=== PATIENT | male | born 1970 | race Caucasian/White ===

== ENCOUNTER → 2023-12-28 | Outpatient (CLI) | payer OTHER ==
[~2023-12-28] MED LIST: ALBU90OI INH; IBUP600 PO; PRED20 PO; TYLENOL PM PO
[2023-12-28 19:05] LABS: BASOPHILS ABSOLUTE AUTO 0.05 K/mm3 (0.00-0.23); BASOPHILS PERCENT AUTO 0 % (0-2); EOSINOPHILS ABSOLUTE AUTO 0.08 K/mm3 (0.00-0.68); EOSINOPHILS PERCENT AUTO 1 % (0-6); Hematocrit 44.1 % (37.0-53.0); Hemoglobin 13.6 g/dL (13.5-17.5); IMMATURE GRAN ABSOLUTE AUTO 0.06 K/mm3 (0.00-0.10); IMMATURE GRAN PERCENT AUTO 1 % (0-1); LYMPHOCYTES ABSOLUTE AUTO 2.27 K/mm3 (0.84-5.20); LYMPHOCYTES PERCENT AUTO 18 % (21-46); MONOCYTES PERCENT AUTO 4 % (4-13); Mean Corpuscular HGB 30.4 pg (26.0-34.0); Mean Corpuscular HGB Conc 30.8 g/dL (31.5-36.5); Mean Corpuscular Volume 98 fL (80-100); Mean Platelet Volume 9.7 fL (9.1-12.4); NEUTROPHILS ABSOLUTE AUTO 9.55 K/mm3 (1.96-9.15); NEUTROPHILS PERCENT AUTO 76 % (41-73); Platelet Count 303 K/mm3 (150-400); RDW Coefficient Variation 14.8 % (11.7-14.2); RDW Standard Deviation 52.8 fL (35.1-46.3); Red Blood Cell Count 4.48 M/mm3 (4.30-5.90); White Blood Cell Count 12.51 K/mm3 (4.00-11.30)
[2023-12-28 20:25] LABS: Alanine Aminotransfer (ALT/SGP 58 U/L (12-78); Albumin, Blood 3.4 g/dL (3.4-5.0); Alk Phos 128 U/L (50-136); Anion Gap 11 mmol/L (3-11); Aspartate Aminotrans (AST/SGOT 30 U/L (12-37); Bilirubin, Total 0.6 mg/dL (0.1-1.0); Blood Urea Nitrogen 22 mg/dL (8-24); Bun/Creatinine Ratio 27.7 (12.0-20.0); CO2, Blood 24 mmol/L (21-32); Calcium, Blood 8.9 mg/dL (8.5-10.1); Chloride, Blood 108 mmol/L (98-108); Cholesterol 176 mg/dL (50-200); Creatinine, Blood 0.79 mg/dL (0.60-1.20); Globulin, Blood 3.5 g/dL (2.2-4.0); Glomerular Filtration Rate 106 (60-); Glucose, Blood 92 mg/dL (70-99); HDL Cholesterol 25 mg/dL (>39); LDL/HDL RATIO 4.7; Low Density Lipoprotein Chol 117 mg/dL (0-110); Potassium, Blood 3.7 mmol/L (3.5-5.5); Prostate Specific Antigen 0.454 ng/mL (0.000-4.000); Sodium, Blood 139 mmol/L (136-145); Total Protein, Blood 6.9 g/dL (6.4-8.2); Triglycerides 169 mg/dL (30-160); Very Low Density Lipoprot Chol 33 mg/dL (6-32)
[2023-12-31 10:41] LABS: HEPATITIS C AB CIA INTERP Negative (Negative); HEPATITIS C ANTIBODY CIA INDEX 0.03 IV
[2023-12-31 12:23] LABS: HIV 1,2 COMBO ANTIGEN/ANTIBODY Negative (Negative)
== END ==
LOC: LAB 17:28 → LAB SHORT 17:28
PROVIDERS: Nurse Practitioner Family
DX: Z13.6 Encounter for screening for cardiovascular disorders (principal); I50.9 Heart failure, unspecified; Z00.01 Encounter for general adult medical examination with abnormal findings; Z11.59 Encounter for screening for other viral diseases; Z12.5 Encounter for screening for malignant neoplasm of prostate
CPT/HCPCS: 80053; 80061; 83880; 85025; 86803; 87389; G0103

== ENCOUNTER → 2024-01-11 | Outpatient (CLI) | payer OTHER ==
[2024-01-12 15:26] LABS: Albumin, Blood 3.2 g/dL (3.4-5.0); Albumin/Globulin Ratio 0.9 (0.8-1.8); Bilirubin, Total 0.7 mg/dL (0.1-1.0); Bun/Creatinine Ratio 20.4 (12.0-20.0); Calcium, Blood 9.1 mg/dL (8.5-10.1); Creatinine, Blood 0.88 mg/dL (0.60-1.20); Globulin, Blood 3.7 g/dL (2.2-4.0); Total Protein, Blood 6.9 g/dL (6.4-8.2)
== END ==
LOC: LAB 16:40 → LAB SHORT 16:40
PROVIDERS: Family Medicine
DX: I50.22 Chronic systolic (congestive) heart failure (principal)
CPT/HCPCS: 80053; 83880

== ENCOUNTER 2024-01-24 22:30 | Emergency (ER) | payer OTHER ==
[~2024-01-24] VITALS: Ht 180.3 cm; Wt 63.5 kg
[2024-01-24] MEDS ORDERED: Albuterol 2.5 MG/3 ML VIAL INH ONE (23:05)
[2024-01-24 23:23] LABS: Base Excess Venous -1.5 mmol/L; Bicarbonate Venous 23.1 mmol/L (24.0-30.0); pH Blood Venous 7.37 (7.34-7.37)
[2024-01-24 23:34] LABS: BASOPHILS ABSOLUTE AUTO 0.08 K/mm3 (0.00-0.23); BASOPHILS PERCENT AUTO 1 % (0-2); EOSINOPHILS ABSOLUTE AUTO 0.04 K/mm3 (0.00-0.68); EOSINOPHILS PERCENT AUTO 0 % (0-6); Hematocrit 44.8 % (37.0-53.0); Hemoglobin 13.5 g/dL (13.5-17.5); IMMATURE GRAN ABSOLUTE AUTO 0.07 K/mm3 (0.00-0.10); IMMATURE GRAN PERCENT AUTO 0 % (0-1); LYMPHOCYTES ABSOLUTE AUTO 2.88 K/mm3 (0.84-5.20); LYMPHOCYTES PERCENT AUTO 18 % (21-46); MONOCYTES ABSOLUTE AUTO 0.99 K/mm3 (0.16-1.47); MONOCYTES PERCENT AUTO 6 % (4-13); Mean Corpuscular HGB 28.1 pg (26.0-34.0); Mean Corpuscular HGB Conc 30.1 g/dL (31.5-36.5); Mean Corpuscular Volume 93 fL (80-100); Mean Platelet Volume 9.7 fL (9.1-12.4); NEUTROPHILS ABSOLUTE AUTO 11.69 K/mm3 (1.96-9.15); NEUTROPHILS PERCENT AUTO 74 % (41-73); Platelet Count 284 K/mm3 (150-400); RDW Coefficient Variation 15.9 % (11.7-14.2); Red Blood Cell Count 4.81 M/mm3 (4.30-5.90); White Blood Cell Count 15.75 K/mm3 (4.00-11.30)
[2024-01-24 23:58] LABS: Albumin, Blood 2.8 g/dL (3.4-5.0); Albumin/Globulin Ratio 0.7 (0.8-1.8); Bilirubin, Total 0.7 mg/dL (0.1-1.0); Bun/Creatinine Ratio 24.5 (12.0-20.0); Creatinine, Blood 0.65 mg/dL (0.60-1.20); Potassium, Blood 3.8 mmol/L (3.5-5.5); Total Protein, Blood 6.8 g/dL (6.4-8.2)
[2024-01-25] MEDS ORDERED: Azithromycin 250 MG Tab PO ONE (00:05)
[2024-01-25] MEDS ORDERED: RX Prepack Albuterol 1 PREPACK/6.7 GM INH UD ONE (00:05)
[2024-01-25] MEDS ORDERED: AZIT250 PO (00:10)
[2024-01-25 00:15] VITALS: BP 125/97
== END 2024-01-25 00:20 | disposition home or self-care (01) ==
LOC: ER 22:30
PROVIDERS: Emergency Medicine
DX: J44.1 Chronic obstructive pulmonary disease with (acute) exacerbation (principal); J18.9 Pneumonia, unspecified organism; F17.210 Nicotine dependence, cigarettes, uncomplicated; Z88.8 Allergy status to other drugs, medicaments and biological substances
CPT/HCPCS: 71045; 80053; 82803; 83880; 84484; 85025; 93005; 93010; 94640; 94664; 99285-25; A9270

== ENCOUNTER → 2024-01-25 | Outpatient (CLI) | payer OTHER ==
[~2024-01-25] MED LIST changes: +AZIT250 PO
[2024-01-25 16:41] LABS: Albumin, Blood 2.8 g/dL (3.4-5.0); Albumin/Globulin Ratio 0.7 (0.8-1.8); Bilirubin, Total 0.7 mg/dL (0.1-1.0); Bun/Creatinine Ratio 26.8 (12.0-20.0); Calcium, Blood 8.9 mg/dL (8.5-10.1); Creatinine, Blood 0.78 mg/dL (0.60-1.20); Globulin, Blood 3.8 g/dL (2.2-4.0); Potassium, Blood 3.9 mmol/L (3.5-5.5); Total Protein, Blood 6.6 g/dL (6.4-8.2)
== END | disposition home or self-care (01) ==
LOC: LAB 15:34 → LAB SHORT 15:34
PROVIDERS: Family Medicine
DX: I50.20 Unspecified systolic (congestive) heart failure (principal)
CPT/HCPCS: 80053; 83880

== ENCOUNTER 2024-02-01 09:55 | Inpatient (IN) | payer OTHER ==
[~2024-02-01] VITALS: Ht 180.3 cm; Wt 77.6 kg
[2024-02-01 11:11] LABS: BASOPHILS ABSOLUTE AUTO 0.02 K/mm3 (0.00-0.23); BASOPHILS PERCENT AUTO 0 % (0-2); EOSINOPHILS ABSOLUTE AUTO 0.02 K/mm3 (0.00-0.68); EOSINOPHILS PERCENT AUTO 0 % (0-6); Hematocrit 48.9 % (37.0-53.0); Hemoglobin 14.6 g/dL (13.5-17.5); IMMATURE GRAN ABSOLUTE AUTO 0.15 K/mm3 (0.00-0.10); IMMATURE GRAN PERCENT AUTO 1 % (0-1); LYMPHOCYTES ABSOLUTE AUTO 2.48 K/mm3 (0.84-5.20); LYMPHOCYTES PERCENT AUTO 13 % (21-46); MONOCYTES ABSOLUTE AUTO 0.87 K/mm3 (0.16-1.47); MONOCYTES PERCENT AUTO 4 % (4-13); Mean Corpuscular HGB 27.3 pg (26.0-34.0); Mean Corpuscular HGB Conc 29.9 g/dL (31.5-36.5); Mean Corpuscular Volume 92 fL (80-100); Mean Platelet Volume 9.7 fL (9.1-12.4); NEUTROPHILS ABSOLUTE AUTO 16.13 K/mm3 (1.96-9.15); NEUTROPHILS PERCENT AUTO 82 % (41-73); NRBC ABSOLUTE 0.27 K/mm3 (0.00-0.02); NRBC Auto 1.4 /100 WBC (0.0-0.2); Platelet Count 370 K/mm3 (150-400); RDW Coefficient Variation 16.5 % (11.7-14.2); RDW Standard Deviation 53.9 fL (35.1-46.3); Red Blood Cell Count 5.34 M/mm3 (4.30-5.90); White Blood Cell Count 19.67 K/mm3 (4.00-11.30)
[2024-02-01] MEDS ORDERED: FUROSEMIDE40 MG PO (11:14)
[2024-02-01] MEDS ORDERED: METO25ER PO (11:19)
[2024-02-01] MEDS ORDERED: DAPAGLIFLOZIN10 MG PO (11:20)
[2024-02-01] MEDS ORDERED: LEVALBUTEROL TA15 G1 (11:20)
[2024-02-01] MEDS ORDERED: MONT10T PO (11:20)
[2024-02-01] MEDS ORDERED: LEVALBUTEROL TA15 G1 INH (11:21)
[2024-02-01 11:38] LABS: Albumin, Blood 2.9 g/dL (3.4-5.0); Albumin/Globulin Ratio 0.7 (0.8-1.8); Bilirubin, Total 0.9 mg/dL (0.1-1.0); Bun/Creatinine Ratio 34.3 (12.0-20.0); Calcium, Blood 9.1 mg/dL (8.5-10.1); Creatinine, Blood 1.02 mg/dL (0.60-1.20); Globulin, Blood 3.9 g/dL (2.2-4.0); Phosphorus, Blood 3.2 mg/dL (2.5-4.9); Potassium, Blood 4.3 mmol/L (3.5-5.5); Total Protein, Blood 6.8 g/dL (6.4-8.2)
[2024-02-01] MEDS ORDERED: Bumetanide 0.25 MG/ML 10ML Vial IV ONE (12:00)
[2024-02-01 12:10] LABS: International Normalized Ratio 1.65
[2024-02-01] MEDS ORDERED: CefTRIAXone Sodium 1,000 MG in NS 100 ML IV ONE (12:10)
[2024-02-01] MEDS ORDERED: LORazepam 2 MG/ML 1ML Injection IV ONE (12:30)
[2024-02-01 12:57] LABS: Adenovirus Not Detected (NOT DETECT); Bordetella pertussis Not Detected (NOT DETECT); Chlamydophila pneumoniae Not Detected (NOT DETECT); Coronavirus 229E Not Detected (NOT DETECT); Coronavirus HKU1 Not Detected (NOT DETECT); Coronavirus NL63 Not Detected (NOT DETECT); Coronavirus OC43 Not Detected (NOT DETECT); Human Metapneumovirus Not Detected (NOT DETECT); Human Rhinovirus/Enterovirus Not Detected (NOT DETECT); Influenza A/2009-H1 Not Detected (NOT DETECT); Influenza A/H1 Not Detected (NOT DETECT); Influenza A/H3 Not Detected (NOT DETECT); Influenza B Not Detected (NOT DETECT); Mycoplasma pneumoniae Not Detected (NOT DETECT); Parainfluenza Virus 1 Not Detected (NOT DETECT); Parainfluenza Virus 2 Not Detected (NOT DETECT); Parainfluenza Virus 3 Not Detected (NOT DETECT); Parainfluenza Virus 4 Not Detected (NOT DETECT); Respiratory Syncytial Virus Not Detected (NOT DETECT); SARS-Cov-2 (COVID-19), BioFire Not Detected (NOT DETECT)
[2024-02-01 13:00] LABS: U Amphetamine Screen Not Detected; U Barbituate Screen Not Detected; U Benzodiazapine Screen Not Detected; U Buprenorphine Screen Not Detected; U Cannabinoids Screen DETECTED; U Cocaine Screen Not Detected; U Methadone Screen Not Detected; U Methamphetamine Screen Not Detected; U Opiates Screen Not Detected; U Oxycodone Screen Not Detected; U Phencyclidine Screen Not Detected
[2024-02-01] MEDS ORDERED: CeFAZolin Sodium 2,000 MG in NS 100 ML IV ONE (13:00)
[2024-02-01] MEDS ORDERED: Tiotropium Bromide 2.5 MCG/ACT MIST INHAL (10 ACT/4 GM) INH SCH (13:05)
[2024-02-01] MEDS ORDERED: Ondansetron 4 MG TAB PO PRN (13:05)
[2024-02-01] MEDS ORDERED: levalbuterol HCL 1.25 MG/3 ML VIAL INH PRN (13:15)
[2024-02-01] MEDS ORDERED: FLU VACC TS2024-25(6MOS UP)/PF 45 MCG/0.5 ML SYRINGE IM ONE (15:00)
[2024-02-01] MEDS ORDERED: Empagliflozin 10 MG TAB PO SCH (17:00)
[2024-02-01] MEDS ORDERED: Heparin Sodium 5000 Units/ML 1ML MDV IV ONE (17:25)
[2024-02-01 17:36] VITALS: BP 118/97
[2024-02-01] MEDS ORDERED: Bumetanide 0.25 MG/ML 4ML ViaL IV SCH (18:00)
[2024-02-01 18:46] LABS: Anti-Xa UFH, PHA Monitoring <0.10 IU/mL
[2024-02-01] MEDS ORDERED: CeFAZolin Sodium 2,000 MG in NS 100 ML IV SCH (19:00)
[2024-02-01] MEDS ORDERED: Heparin Sodium,Porcine/0.5 NS 500 ML IV SCH (19:25)
[2024-02-01 20:06] VITALS: BP 114/99
[2024-02-02] VITALS (15 sets, daily range): BP systolic 100–124; BP diastolic 67–94
[2024-02-02 02:13] LABS: BASOPHILS ABSOLUTE AUTO 0.02 K/mm3 (0.00-0.23); BASOPHILS PERCENT AUTO 0 % (0-2); EOSINOPHILS ABSOLUTE AUTO 0.08 K/mm3 (0.00-0.68); EOSINOPHILS PERCENT AUTO 0 % (0-6); Hematocrit 45.5 % (37.0-53.0); Hemoglobin 13.9 g/dL (13.5-17.5); IMMATURE GRAN ABSOLUTE AUTO 0.14 K/mm3 (0.00-0.10); IMMATURE GRAN PERCENT AUTO 1 % (0-1); LYMPHOCYTES ABSOLUTE AUTO 2.53 K/mm3 (0.84-5.20); LYMPHOCYTES PERCENT AUTO 14 % (21-46); MONOCYTES PERCENT AUTO 4 % (4-13); Mean Corpuscular HGB 27.8 pg (26.0-34.0); Mean Corpuscular HGB Conc 30.5 g/dL (31.5-36.5); Mean Corpuscular Volume 91 fL (80-100); NEUTROPHILS ABSOLUTE AUTO 15.23 K/mm3 (1.96-9.15); NEUTROPHILS PERCENT AUTO 81 % (41-73); NRBC ABSOLUTE 0.16 K/mm3 (0.00-0.02); NRBC Auto 0.9 /100 WBC (0.0-0.2); Platelet Count 322 K/mm3 (150-400); RDW Coefficient Variation 16.1 % (11.7-14.2); RDW Standard Deviation 52.7 fL (35.1-46.3)
[2024-02-02] MEDS ORDERED: Clarify Drug Order XX ONE (02:30)
[2024-02-02 02:35] LABS: Albumin, Blood 2.7 g/dL (3.4-5.0); Albumin/Globulin Ratio 0.8 (0.8-1.8); Bilirubin, Total 0.7 mg/dL (0.1-1.0); Bun/Creatinine Ratio 35.3 (12.0-20.0); Calcium, Blood 8.7 mg/dL (8.5-10.1); Creatinine, Blood 1.02 mg/dL (0.60-1.20); Globulin, Blood 3.5 g/dL (2.2-4.0); Potassium, Blood 3.9 mmol/L (3.5-5.5); Total Protein, Blood 6.2 g/dL (6.4-8.2)
--- NOTE | 2024-02-02 05:28 | NUR ---
SHIFT SUMMARY ASSUMED CARE OF PT AT 1900. PT A&O4 AND COOPERATIVE WITH CARE. PT IS PRESENTED WITH BLE ULCERS FROM KNEES TO TOP OF FEET, PICTURES IN CHART, CLEANED AND WRAPPED WITH NON ADHERENT DRESSING AND KERLIX. PT LATER IN SHIFT STATED THE WRAPS WERE BURNING AND CAUSING DISCOMFORT, BANDAGES REMOVED AT PT'S REQUEST. VSS W THE EXCEPTION OF O2 SAT. VARIOUS PULSE OX PLACED ON PT AND LITTLE ACURATE READINGS WERE BEING CAUGHT. PLACE PULSE OX ON FOREHEAD AND WHILE PT SLEPT, O2 READING TO DECREASE TO THE 60S. RT PLACED PT ON BIPAP WHILE SLEEPING AND PT TOLERATED IT WELL. PT DENIES CP AND SOB BUT AT TIMES WOULD BECOME TACHYPNEIC BUT SOULD SELF REGULATE. NO ACUTE CARDIAC EVENTS OVERNIGHT. PT'S BED IN LOWEST POSITION AND CALL LIGHT WITHIN REACH.
[2024-02-02] MEDS ORDERED: Metoprolol Succinate 50 MG TABCR PO SCH (09:00)
[2024-02-02] MEDS ORDERED: Enoxaparin 40 MG/0.4 ML SYR SC SCH (09:00)
[2024-02-02] MEDS ORDERED: Spironolactone 12.5 MG TAB PO SCH (09:00)
[2024-02-02] MEDS ORDERED: Empagliflozin 25 MG TAB PO SCH (09:00)
[2024-02-02] MEDS ORDERED: Metoprolol Succinate 25 MG TABCR PO SCH (09:00)
[2024-02-02] MEDS ORDERED: Bumetanide 0.25 MG/ML 4ML ViaL IV SCH (09:00)
[2024-02-02] MEDS ORDERED: Dose Adjust by Pharmacy XX STA (09:07)
--- NOTE | 2024-02-02 10:37 | NUR ---
PEDRO WITH PALLIATIVE CARE AT BEDSIDE TO DISCUSS CODE STATUS WITH PT AND TO FILL OUT A POLST AND AN ADVANCED DIRECTIVE. MOTHER AT BEDSIDE. PT REMAIN ON CARDIAC OD SPO2 MONITORING. 2L NC DUE TO DESATURATING OFF AND ON INTO THE 70'S. DENEIS ANY FURTHER NEEDS. CALL LIGHT IN REACH.
[2024-02-02] MEDS ORDERED: Nitroglycerin 2 MG/20 ML BTL ONE (12:47)
[2024-02-02] MEDS ORDERED: NS 1,000 ML IV ONE (12:47)
[2024-02-02] MEDS ORDERED: Verapamil HCL 2.5 MG/ML 2ML Injection ONE (12:47)
[2024-02-02] MEDS ORDERED: NS 250 ML IV ONE (12:47)
[2024-02-02] MEDS ORDERED: Heparin Sodium 1000 Units/ML 10ML MDV ONE (12:47)
[2024-02-02] MEDS ORDERED: NS 500 ML IV ONE (12:59)
[2024-02-02] MEDS ORDERED: Midazolam HCl 1MG / ML 2ML Vial ONE (12:59)
[2024-02-02] MEDS ORDERED: FentaNYL Citrate 50 MCG/ML 2 ML Injection ONE (12:59)
--- NOTE | 2024-02-02 13:05 | NUR ---
PT TO PRECISION LENS TECHNICIAN FOR ANGIO AT THIS TIME. HEAPRIN STOPPED AND PHARMACY NOTIFIED BY THIS RN.
--- NOTE | 2024-02-02 14:41 | NUR ---
Met with pt and his mom Cristal at bedside this am. He wanted to wait until she arrived to discuss POLST. We discussed the options and what each is, and the patient opted to change code status to DNR with full treatment. POLST completed, Dr. Biggs aware and order changed.
--- NOTE | 2024-02-02 14:56 | NUR ---
PT BACK TO ROOM FROM [facility]NER POST ANGIO. TR BAND IN PLACE TO R RADIAL WITH 10ML INFLATED WITH ARM BOARD IN PLACE. PT EDUCATED ON THE IMPORTANCE OF KEEPING ARM STRAIGHT AND NOT USING HAND. PT A&OX4. ANSWERING QUESTIONS APPROPRIATELY. PROVIDED WITH WATER AND JELLO. VSS. MAP >65. MAINTAINING O2 SAT ABOVE 90% ON RA. DENIES ANY NEEDS. CALL LIGHT IN REACH
--- NOTE | 2024-02-02 18:58 | NUR ---
SHIFT SUMMARY: PT A&OX4. FOLLOWS COMMANDS AND MAKES NEEDS KNOWN TO STAFF. PT CALLS APPROPRIATELY. PT WENT FOR AN ANGIO AT 1315 AND CAME BACK TO THE ROOM AT APPROX 1430. TR BAND WAS DEFLATED AND REMAINS ON PT AT THIS TIME. DR PINA WOULD LIKE TO PT CONTINUE ON HEPARIN ONCE WRIST IS CLEARED. PROVIDER CAME TO BEDSIDE TO UPDATE PT ON RESULTS FROM ANGIO. PT REMAINS FREE OF ANY CP OR SOB THROUGHOUT THE SHIFT. VSS. MAP >65. PT HAS HAD A CHETNA AMOUNT OF CLEAR YELLOW URINE OUTPUT. PLAN FOR A PARASYNTHESIS TOMORROW WELL A CT OF HIS LEGS. NO OTHER SIGNIFICANT EVENTS HAPPENED DURING THIS SHIFT. REPORT TO PHILLIP FARRAR TO ASSUME CARE OF PT.
[2024-02-02] MEDS ORDERED: Arginine/Glutamine/Calcium Hmb 1 Packet PO SCH (21:00)
--- NOTE | 2024-02-02 23:21 | NUR ---
ASSUMPTION OF CARE NOTE. PT AOX4, PLEASANT, COOPERATIVE WITH CARE, ABLE TO MAKE NEEDS KNOWN. BEDREST FOR TIME BEING. CONTINENT WITH URINAL AND CALLS APPROPRIATELY OUTSIDE OF ONCE INSTANCE OF ACCIDENTAL INCONTINENCE. URINE OUTPUT CHARTED APPROPRIATELY. ABLE TO REPOSITION SELF INDEPENDENTLY. VITALS STABLE. BP ON THE SOFT SIDE BUT MAP THUS FAR HAS REMAINED >65. PER SHIFT REPORT, IF MAP WERE TO HIT <=65 FOR EXTENDED PERIOD OF TIME OR HIT IT ONCE WITH ANY SYMPTOMS DR. ALMAZAN WOULD LIKE PT TO BE MOVED TO ICU FOR PRESSORS. THUS FAR, BP HAS BEEN STABLE WITH MOST RECENT MAP 86. NO PAIN REPORTED THIS SHIFT. RIGHT RADIAL SITE C/D/I WITH TEGADERM AND ARM BOARD IN PLACE. HEPARIN INFUSING AT THIS TIME PER EMAR. PT PLETH ON PULSE OXIMETER HAS BEEN MUCH MORE CONSISTENT AND RELIABLE SINCE SWITCHING TO BLUE ALARIS PROBE. MAINTAINING >90% SINCE CPAP WAS PUT IN PLACE. PT RESTING COMFORTABLY AT THIS TIME. BED LOCKED IN LOWEST POSITION. CALL LIGHT LEFT WITHIN REACH. CONTINUING TO MONITOR.
[2024-02-03] VITALS (19 sets, daily range): BP systolic 92–115; BP diastolic 60–85
--- NOTE | 2024-02-03 00:13 | NUR ---
PT CONTINUES TO DO WELL. STARTED SECOND LINE ON PATIENT TO ALLOW FOR ABX TO RUN WITHOUT STOPPING HEPARIN. PT DENIES PAIN, VITALS STABLE, SATURATING >88% ON ROOM AIR AT THIS TIME WITH MOSTLY CONSISTENT PLETH. REQUESTED SNACKS WHICH HE IS TOLERATING WELL. CONTINUES TO BE INDEPENDENT WITH URINAL. BED LOCKED IN LOWEST POSITION. ABX + HEPARIN RUNNING. CALL LIGHT LEFT WITHIN REACH. CONTINUING TO MONITOR.
[2024-02-03 03:26] LABS: Hematocrit 39.9 % (37.0-53.0); Hemoglobin 12.3 g/dL (13.5-17.5); Mean Corpuscular HGB 27.5 pg (26.0-34.0); Mean Corpuscular HGB Conc 30.8 g/dL (31.5-36.5); Mean Corpuscular Volume 89 fL (80-100); Mean Platelet Volume 9.4 fL (9.1-12.4); NRBC ABSOLUTE 0.09 K/mm3 (0.00-0.02); NRBC Auto 0.6 /100 WBC (0.0-0.2); Platelet Count 310 K/mm3 (150-400); RDW Coefficient Variation 16.2 % (11.7-14.2); RDW Standard Deviation 52.3 fL (35.1-46.3); Red Blood Cell Count 4.48 M/mm3 (4.30-5.90); White Blood Cell Count 15.62 K/mm3 (4.00-11.30)
[2024-02-03 03:49] LABS: Bun/Creatinine Ratio 34.8 (12.0-20.0); Calcium, Blood 8.3 mg/dL (8.5-10.1); Creatinine, Blood 0.98 mg/dL (0.60-1.20); Magnesium, Blood 1.6 mg/dL (1.6-2.4); Potassium, Blood 3.4 mmol/L (3.5-5.5)
--- NOTE | 2024-02-03 04:04 | NUR ---
SHIFT SUMMARY. SHIFT HAS GONE WELL OVERALL. PT AOX4, PLEASANT, COOPERATIVE WITH CARE, ABLE TO MAKE NEEDS KNOWN. CALLS APPROPRIATELY. HAS BEEN ABLE TO REST SPORADICALLY THROUGHOUT SHIFT. CONTINUES TO DENY PAIN. WORE CPAP THROUGHOUT MOST OF THE SHIFT, WEARING 2 L O2 VIA NC WHILE AWAKE. BP HAS REMAINED SOFT THROUGHOUT SHIFT BUT MAP HAS REMAINED >65. CONTINUES TO BE INDEPENDENT WITH URINAL AND REQUESTS ASSISTANCE APPROPRIATELY FOR EMPTYING AND CHARTING PURPOSES. HEPARIN INFUSING SINCE 1 HOUR POST TR BAND REMOVAL. PT REPOSITIONS INDEPENDENTLY. BED LOCKED IN LOWEST POSITION. CALL LIGHT LEFT WITHIN REACH. CONTINUING TO MONITOR.
[2024-02-03] MEDS ORDERED: Dose Adjust by Pharmacy XX STA (04:23)
[2024-02-03] MEDS ORDERED: Potassium Chloride 20 MEQ TabCR PO ONE (07:50)
[2024-02-03] MEDS ORDERED: Mag Sulfate 1 GM/D5% 100ML 100 ML IV STA (07:53)
--- NOTE | 2024-02-03 09:49 | NUR ---
UPDATE: PT TO IMAGING FOR THORACENTESIS.
--- NOTE | 2024-02-03 10:51 | NUR ---
UPDATE: PT BACK FROM IMAGING. 1L OF FLUID REMOVED DURING THORACENTESIS. VSS.
[2024-02-03 12:17] LABS: Lactate Dehydrogenase, Body Fl 112 U/L; Protein, Body Fluid 1.7 g/dL
[2024-02-03 13:11] LABS: Hemoglobin 13.1 g/dL (13.5-17.5)
[2024-02-03 13:14] LABS: RBC Count, Body Fluid 488 /mm3 (0-0)
[2024-02-03 13:17] LABS: Automated BF WBC Count 0.425 K/mm3 (0-999)
[2024-02-03 13:18] LABS: Appearance, Body Fluid Clear (Clear); Body Fluid WBC Count 425 /mm3 (0-999); Color, Body Fluid L Yellow (None-Yellow)
[2024-02-03 13:37] LABS: Total Cell Count, Body Fluid 100
--- NOTE | 2024-02-03 16:13 | NUR ---
SHIFT SUMMARY: PT ALERT AND ORIENTED X4, ABLE TO FOLLOW COMMANDS AND MAKE NEEDS KNOWN. COOPERATIVE WITH CARE. STRENGTH EQUAL BILATERALLY. BP AND HR STABLE. AFEBRILE. SPO2 >94% ON 3L NC. LUNG SOUNDS COARSE, DIM IN BASES. RESPIRATIONS EVEN AND UNLABORED AT REST. PT WITH +4 EDEMA IN BLE, WARM TO TOUCH, PT WITH SCATTERED SCABS THROUGHOUT, PAINFUL WITH MOVEMENT. ABLE TO FIND PULSES WITH DOPPLER. PODIATRY CONSULTED THIS AM, SEE NOTE. THORACENTESIS COMPLETED THIS MORNING, 1L OF FLUID REMOVED. PT TOLERATED WELL. HEPARIN GTT IN L.AC. PT ABLE TO WORK WITH PT/OT THIS AFTERNOON, ABLE TO AMBULATE TO SHOWER VIA ONE PERSON ASSIST. [address] PT CURRENTLY LYING IN BED WATCHING TV. BED IN LOW, CALL LIGHT IN REACH, WILL REPORT TO ONCOMING RN.
--- NOTE | 2024-02-03 17:16 | NUR ---
REPORT RECIEVED FROMCALIXTO FISHER AT 1640. THIS RN TO ASSUME CARE.
[2024-02-04 03:56] VITALS: BP 107/77
--- NOTE | 2024-02-04 05:40 | NUR ---
SHIFT SUMMARY ASSUMED CARE OF PT AT 1900. PT A&O4, PLEASANT AND COOPERATIVE IN CARE. PT ONLY REQUESTED ONE SMALL CUP OF [place] SOD[place] FOR THE NIGHT AND DRANK HIS LUIS WITH 8OZ OF WATER. AT THE BEGINING OF SHIFT PT WAS VOIDING A LARGE AMOUNT OF COLORLESS URINE BUT T/O THE NIGHT HIS URINE OUTPUT PROGRESSIVLY DECLINED IN AMOUNT AND DARKENED IN COLOR. PT PLACED ON BIPAP WHILE SLEEPING BUT BECAME RESTLESS AND REMOVED IT. PT LATER IN THE NIGHT STARTING TO DESAT INTO THE 70S, SPOKE TO THE PT AND PT PLACED BIPAP BACK ON. PT ALSO DECIDED TO DO HIS OWN WOUND CARE AND PUT BETADINE ON HIS WOUNDS. PT'S BED IN LOWEST POSITION AND CALL LIGHT WITHIN REACH.
[2024-02-04 07:38] LABS: Hematocrit 38.6 % (37.0-53.0); Hemoglobin 11.9 g/dL (13.5-17.5); Mean Corpuscular HGB 27.4 pg (26.0-34.0); Mean Corpuscular HGB Conc 30.8 g/dL (31.5-36.5); Mean Corpuscular Volume 89 fL (80-100); Mean Platelet Volume 9.3 fL (9.1-12.4); NRBC ABSOLUTE 0.03 K/mm3 (0.00-0.02); NRBC Auto 0.2 /100 WBC (0.0-0.2); Platelet Count 285 K/mm3 (150-400); RDW Coefficient Variation 16.1 % (11.7-14.2); RDW Standard Deviation 52.1 fL (35.1-46.3); Red Blood Cell Count 4.34 M/mm3 (4.30-5.90); White Blood Cell Count 15.57 K/mm3 (4.00-11.30)
[2024-02-04 07:51] VITALS: BP 116/77
[2024-02-04 07:59] LABS: Bun/Creatinine Ratio 40.3 (12.0-20.0); Calcium, Blood 8.2 mg/dL (8.5-10.1); Creatinine, Blood 0.94 mg/dL (0.60-1.20); Potassium, Blood 3.8 mmol/L (3.5-5.5)
[2024-02-04 10:50] LABS: International Normalized Ratio 1.19; Prothrombin Time Results 12.6 Sec (9.7-11.5)
[2024-02-04 11:14] VITALS: BP 118/88
--- NOTE | 2024-02-04 12:28 | NUR ---
PT LEFT UNIT FOR SURGERY AT 1225 VIA HOSPITAL BED AND ON RA. PT AT BEDSIDE WHEN SURGERY STAFF ARRIVED TO TAKE PT. CHART WITH SURGICAL STAFF.
[2024-02-04] MEDS ORDERED: Spironolactone 25 MG Tab PO SCH (14:00)
[2024-02-04 14:25] LABS: BASOPHILS ABSOLUTE AUTO 0.03 K/mm3 (0.00-0.23); BASOPHILS PERCENT AUTO 0 % (0-2); EOSINOPHILS ABSOLUTE AUTO 0.14 K/mm3 (0.00-0.68); EOSINOPHILS PERCENT AUTO 1 % (0-6); IMMATURE GRAN PERCENT AUTO 1 % (0-1); LYMPHOCYTES ABSOLUTE AUTO 2.33 K/mm3 (0.84-5.20); LYMPHOCYTES PERCENT AUTO 14 % (21-46); MONOCYTES PERCENT AUTO 4 % (4-13); Mean Corpuscular HGB 27.6 pg (26.0-34.0); Mean Corpuscular HGB Conc 30.8 g/dL (31.5-36.5); Mean Corpuscular Volume 90 fL (80-100); Mean Platelet Volume 9.8 fL (9.1-12.4); NEUTROPHILS ABSOLUTE AUTO 12.86 K/mm3 (1.96-9.15); NEUTROPHILS PERCENT AUTO 80 % (41-73); NRBC ABSOLUTE 0.02 K/mm3 (0.00-0.02); NRBC Auto 0.1 /100 WBC (0.0-0.2); Platelet Count 297 K/mm3 (150-400); RDW Coefficient Variation 16.2 % (11.7-14.2); RDW Standard Deviation 52.5 fL (35.1-46.3); Red Blood Cell Count 4.35 M/mm3 (4.30-5.90); White Blood Cell Count 16.16 K/mm3 (4.00-11.30)
[2024-02-04 15:37] VITALS: BP 115/79
--- NOTE | 2024-02-04 17:45 | NUR ---
SHIFT SUMMARY PT A/OX4 AND COOPERATIVE OF CARE. PT ABLE TO EXPRESS NEEDS AND CALLED APPROPIATE. PT HR HAD BRIEF RUN OF SVT REPORTED BY [employer], PT ASYMPTOMATIC. HR OTHERWISE IN THE 90-100'S. OTHER VSS THROUGHOUT SHIFT WITH O2 SATS IN THE 90'S ON RA. NO REPORT OF CHEST PAIN/PRESSURE THROUGHOUT SHIFT. NO REPORT OF SOB THROUGHOUT SHIFT. PT INDEPENDENTLY USED URINAL TO ELEMINATE. FLUID RESTRICTION REMAINED IN PLACE. PT REQUESTED TO DO WOUND CARE HIMSELF. WARFARIN ORDERED TO START THIS SHIFT.
[2024-02-04] MEDS ORDERED: Bumetanide 0.25 MG/ML 4ML ViaL IV SCH (18:00)
[2024-02-04] MEDS ORDERED: Warfarin Sodium 5 MG Tab PO ONE (18:00)
[2024-02-04 20:01] VITALS: BP 99/75
[2024-02-04] MEDS ORDERED: Melatonin 5 MG Tablet PO PRN (21:30)
[2024-02-05 00:13] VITALS: BP 91/63
[2024-02-05 04:10] VITALS: BP 105/79
[2024-02-05 04:12] LABS: BASOPHILS ABSOLUTE AUTO 0.05 K/mm3 (0.00-0.23); BASOPHILS PERCENT AUTO 0 % (0-2); EOSINOPHILS ABSOLUTE AUTO 0.19 K/mm3 (0.00-0.68); EOSINOPHILS PERCENT AUTO 1 % (0-6); Hematocrit 38.4 % (37.0-53.0); Hemoglobin 11.7 g/dL (13.5-17.5); IMMATURE GRAN ABSOLUTE AUTO 0.13 K/mm3 (0.00-0.10); IMMATURE GRAN PERCENT AUTO 1 % (0-1); LYMPHOCYTES ABSOLUTE AUTO 2.28 K/mm3 (0.84-5.20); LYMPHOCYTES PERCENT AUTO 15 % (21-46); MONOCYTES ABSOLUTE AUTO 0.79 K/mm3 (0.16-1.47); MONOCYTES PERCENT AUTO 5 % (4-13); Mean Corpuscular HGB 27.1 pg (26.0-34.0); Mean Corpuscular HGB Conc 30.5 g/dL (31.5-36.5); Mean Corpuscular Volume 89 fL (80-100); Mean Platelet Volume 9.2 fL (9.1-12.4); NEUTROPHILS ABSOLUTE AUTO 11.68 K/mm3 (1.96-9.15); NEUTROPHILS PERCENT AUTO 77 % (41-73); NRBC ABSOLUTE 0.02 K/mm3 (0.00-0.02); NRBC Auto 0.1 /100 WBC (0.0-0.2); Platelet Count 260 K/mm3 (150-400); RDW Standard Deviation 52.4 fL (35.1-46.3); Red Blood Cell Count 4.32 M/mm3 (4.30-5.90); White Blood Cell Count 15.12 K/mm3 (4.00-11.30)
[2024-02-05 04:26] LABS: Bun/Creatinine Ratio 51.7 (12.0-20.0); Calcium, Blood 8.1 mg/dL (8.5-10.1); Creatinine, Blood 0.74 mg/dL (0.60-1.20); Potassium, Blood 3.6 mmol/L (3.5-5.5)
[2024-02-05 04:41] LABS: Anti-Xa UFH, PHA Monitoring 0.46 IU/mL; International Normalized Ratio 1.21; Prothrombin Time Results 12.8 Sec (9.7-11.5)
--- NOTE | 2024-02-05 05:06 | NUR ---
SHIFT SUMMARY ASSUMED CARE OF PT AT 1900. PT A&O4 AND ABLE TO EXPRESS SELF APPROPRIATELY. PT REPORTED THE MD STATED HE CAN HAVE A SLEEP AID, NO SLEEP AID ORDERED. CALLED RESIDENT, ORDERED MELATONIN, GIVEN TO PT, PT REPORTED MELATONIN WON'T WORK BUT APPROX 1HR LATER CHECK PT, PT WAS SLEEPING; EYES CLOSED, CHEST RISING. ASKED PT IF I CAN PLACE HIM ON BIPAP D/T NONSUSTAINING DESATURATION, PT REFUSED. PT LATER AWOKE AND DID HIS OWN WOUND CARE. PT'S BED IN LOWEST POSITION AND CALL LIGHT WITHIN REACH.
[2024-02-05] MEDS ORDERED: Dose Adjust by Pharmacy XX STA (05:11)
[2024-02-05 08:39] VITALS: BP 105/83
[2024-02-05] MEDS ORDERED: Torsemide 20 MG TAB PO SCH (09:00)
[2024-02-05] MEDS ORDERED: Spironolactone 12.5 MG TAB PO SCH (09:00)
[2024-02-05] MEDS ORDERED: DiphenhydrAMINE HCL 25 MG Cap PO PRN (09:15)
[2024-02-05 12:35] VITALS: BP 116/84
[2024-02-05] MEDS ORDERED: NS 250 ML IV PRN (13:00)
[2024-02-05 16:18] VITALS: BP 108/82
[2024-02-05] MEDS ORDERED: Warfarin Sodium 5 MG Tab PO SCH (18:00)
--- NOTE | 2024-02-05 18:27 | NUR ---
End of shift note. Pt has been resting in bed for much of the shift. Pt is able to move around the room independently. Hep gtt continues to infuse without issue. 19u/kg/hr is the current rate. Pt has been ST 90s for most of the day. 5 beat run of v tach this afternoon, Pt was asleep at the time. Pt talked with the MD about getting a sleep aid. New order for benadryl was received. Significant sores/ulcers to BLE. Pt is painting with betadine BID. Staff verified that supplies were accessible and that Pt was doing wound care. Significant amount of education given about heart health lifestyle. Pt is able to make needs known, call light is within reach.
[2024-02-05 20:16] VITALS: BP 91/72
[2024-02-06 00:05] VITALS: BP 109/84
[2024-02-06 03:27] LABS: Bun/Creatinine Ratio 46.7 (12.0-20.0); Calcium, Blood 8.5 mg/dL (8.5-10.1); Creatinine, Blood 0.79 mg/dL (0.60-1.20); Magnesium, Blood 1.8 mg/dL (1.6-2.4); Potassium, Blood 3.9 mmol/L (3.5-5.5)
[2024-02-06 03:34] LABS: Anti-Xa UFH, PHA Monitoring 0.49 IU/mL; International Normalized Ratio 3.7; Prothrombin Time Results 35.9 Sec (9.7-11.5)
--- NOTE | 2024-02-06 04:40 | NUR ---
SHIFT SUMMARY ASSUMED CARE OF PT AT 1900. PT A&O4 AND ABLE TO EXPRESS NEEDS APPROPRIATELY. NO CARDIAC EVENTS OVERNIGHT. PT LESS CONCERNED OF MONITORING FLUID INTAKE TODAY, REQUESTED MORE TO DRINK THAN YESTERDAY. PT EDUCATED. PT REFUSED SLEEP AID HE REQUESTED FROM MD EARLIER IN THE DAY AND REFUSED BIPAP WHILE SLEEPING. PT EXPRESSED HIS EXCITEMENT TO GO HOME TODAY. PT'S BED IN LOWEST POSITION AND CALL LIGHT WITHIN REACH.
[2024-02-06] MEDS ORDERED: Dose Adjust by Pharmacy XX STA (04:48)
[2024-02-06 05:11] VITALS: BP 93/69
[2024-02-06 05:41] LABS: Hematocrit 40.2 % (37.0-53.0); Platelet Count 273 K/mm3 (150-400)
[2024-02-06 08:06] VITALS: BP 112/88
[2024-02-06] MEDS ORDERED: Losartan Potassium 25 MG Tab PO SCH (10:00)
[2024-02-06] MEDS ORDERED: SOAANZ20 M1 PO (10:19)
[2024-02-06] MEDS ORDERED: ANORO ELLIPTA1 EACH INH (10:20)
[2024-02-06] MEDS ORDERED: LOSA25 PO (10:22)
[2024-02-06] MEDS ORDERED: Coumadin2 MG PO ×2 (10:23→10:40)
[2024-02-06] MEDS ORDERED: CEPH500 PO (10:27)
--- NOTE | 2024-02-06 11:45 | NUR ---
DISCHARGE: PT HAS BEEN CLEARED FOR DISCHARGE HOME. ALL IV ACCESS DC'd WNL. PT DRESSES SELF. PT's MOTHER TO BEDSIDE, DC PAPERWORK/INSTRUCTIONS PROVIDED AND REVIEWED, ALL QUESTIONS HAVE BEEN ANSWERED. PT ESCORTED FROM UNIT VIA W/C W/OUT INCIDENT.
== END 2024-02-06 11:38 | disposition home or self-care (01) | DRG 286 ==
LOC: ER 09:55 → PCU 13:01
PROVIDERS: Physician Assistant; Student in an Organized Health Care Education/Training Program; ADMIT Internal Medicine
PROC: 5A09457 Assistance with Respiratory Ventilation, 24-96 Consecutive Hours, Continuous Positive Airway Pressure (ICD-10-PCS; 2024-02-01)
PROC: 4A023N6 Measurement of Cardiac Sampling and Pressure, Right Heart, Percutaneous Approach (ICD-10-PCS; principal; 2024-02-02)
PROC: B2111ZZ Fluoroscopy of Multiple Coronary Arteries using Low Osmolar Contrast (ICD-10-PCS; 2024-02-02)
PROC: 3E03329 Introduction of Other Anti-infective into Peripheral Vein, Percutaneous Approach (ICD-10-PCS; 2024-02-02)
PROC: 0W993ZZ Drainage of Right Pleural Cavity, Percutaneous Approach (ICD-10-PCS; 2024-02-03)
DX: I50.23 Acute on chronic systolic (congestive) heart failure (principal); A41.9 Sepsis, unspecified organism; J96.01 Acute respiratory failure with hypoxia; I42.0 Dilated cardiomyopathy; L03.115 Cellulitis of right lower limb; L03.116 Cellulitis of left lower limb; I24.0 Acute coronary thrombosis not resulting in myocardial infarction; L97.829 Non-pressure chronic ulcer of other part of left lower leg with unspecified severity; L97.819 Non-pressure chronic ulcer of other part of right lower leg with unspecified severity; J44.9 Chronic obstructive pulmonary disease, unspecified; E78.5 Hyperlipidemia, unspecified; F15.10 Other stimulant abuse, uncomplicated; L97.529 Non-pressure chronic ulcer of other part of left foot with unspecified severity; L97.519 Non-pressure chronic ulcer of other part of right foot with unspecified severity; I27.22 Pulmonary hypertension due to left heart disease; Z88.8 Allergy status to other drugs, medicaments and biological substances; Z87.891 Personal history of nicotine dependence; Z79.899 Other long term (current) drug therapy
CPT/HCPCS: 0202U; 32555; 36415; 71045; 71046; 76705; 76937; 80048; 80053; 83615; 83735; 83880; 84100; 84145; 84157; 84484; 85014; 85018; 85025; 85027; 85049; 85520; 85610; 85730; 87040; 87070; 87075; 87077; 87205; 88108; 88305; 88342; 89051; 93005; 93010; 93308; 93321; 93456; 94640; 94660; 94760; 94762; 96365; 96375; 97110; 97116; 97163; 97165; 97530; 99152; 99285-25; A9270; C1769; C1887; C1894; J0690; J0696; J1644; J2060; J2250; J3010; J3475; J7030; J7040; J7050; Q9957; Q9967

== ENCOUNTER → 2024-02-10 | Outpatient (CLI) | payer OTHER ==
[~2024-02-10] MED LIST changes: +ANORO ELLIPTA1 EACH INH; +CEPH500 PO; +Coumadin2 MG PO; +DAPAGLIFLOZIN10 MG PO; +FUROSEMIDE40 MG PO; +LEVALBUTEROL TA15 G1; +LEVALBUTEROL TA15 G1 INH; +LOSA25 PO; +METO25ER PO; +MONT10T PO; +SOAANZ20 M1 PO
[2024-02-10 20:00] LABS: Albumin, Blood 2.8 g/dL (3.4-5.0); Albumin/Globulin Ratio 0.7 (0.8-1.8); Bilirubin, Total 0.6 mg/dL (0.1-1.0); Bun/Creatinine Ratio 29.3 (12.0-20.0); Calcium, Blood 8.7 mg/dL (8.5-10.1); Creatinine, Blood 0.82 mg/dL (0.60-1.20); Potassium, Blood 3.5 mmol/L (3.5-5.5); Total Protein, Blood 6.8 g/dL (6.4-8.2)
== END | disposition home or self-care (01) ==
LOC: LAB SHORT 19:13 → LAB 19:13
PROVIDERS: Family Medicine
DX: I50.22 Chronic systolic (congestive) heart failure (principal)
CPT/HCPCS: 80053